=== PATIENT | male | born 1995 | race Caucasian/White ===

== ENCOUNTER 2017-03-19 03:59 | Emergency (ER) | payer OTHER ==
[~2017-03-19] VITALS: Ht 185.4 cm; Wt 97.6 kg
[2017-03-19] MEDS ORDERED: KEFLEX500 MG PO (05:30)
[2017-03-19 05:32] VITALS: BP 155/86
== END 2017-03-19 05:33 | disposition home or self-care (01) ==
LOC: EME 03:59
PROC: 3E0234Z Introduction of Serum, Toxoid and Vaccine into Muscle, Percutaneous Approach (ICD-10-PCS; principal; 2017-03-19)
DX: S61.432A Puncture wound without foreign body of left hand, initial encounter (principal); W27.0XXA Contact with workbench tool, initial encounter; Z72.0 Tobacco use
CPT/HCPCS: 73130; 99281; 99284